=== PATIENT | male | born 1950 | race American Indian/Alaskan Native ===

== ENCOUNTER 2016-10-26 17:49 | Emergency (ER) | payer MEDICARE ==
[2016-10-26 20:14] LABS: Basophils % (Auto) 0.3 % (0.0-1.8); Eosinophils % (Auto) 2.3 % (0.0-4.3); Hematocrit 29.7 % (35.5-45.6); Hemoglobin 10.4 gm/dl (11.8-15.2); Mean Corpuscular HGB Conc 35 % (32-34); Mean Corpuscular Hemoglobin 34 pg (28-32); Mean Corpuscular Volume 97 fl (84-94); Platelet Count 189 K/mm3 (140-440); Red Blood Count 3.07 M/mm3 (3.65-5.03); Red Cell Distribution Width 13.4 % (13.2-15.2); White Blood Count 4.1 K/mm3 (4.5-11.0)
[2016-10-26 20:27] LABS: Alanine Aminotransferase 21 units/L (7-56); Albumin/Globulin Ratio 0.6 %; Alkaline Phosphatase 82 units/L (35-129); Anion Gap 17 mmol/L; BUN/Creatinine Ratio 12.85; Bilirubin,Total 0.6 mg/dL (0.1-1.2); Blood Urea Nitrogen 9 mg/dL (9-20); Calcium 9.5 mg/dL (8.4-10.2); Carbon Dioxide 28 mmol/L (22-30); Chloride 95.1 mmol/L (98-107); Glucose 98 mg/dL (75-100); Lipase 36 units/L (13-60); Sodium 136 mmol/L (137-145); Total Protein 10.2 g/dL (6.3-8.2)
[2016-10-27] MEDS ORDERED: VALIUM IM ONE ×2 (01:07→04:28)
[2016-10-27] MEDS ORDERED: DILAUDID IM ONE (01:07)
--- NOTE | 2016-10-27 01:12 | Emergency Department Report ---
HPI - General Chief Complaint: Dyspnea/Respdistress Time Seen by Provider: 10/27/16 00:33 - HPI HPI: The patient is a 66-year-old male with a history of chronic low back pain, who presents for evaluation of recurrence of back pain. The patient states that his back pain recurred one day ago, has been constant since onset, 10/10 in severity, throbbing in quality, exacerbated with movement of the back. His pain is not controlled with home oxycodone. He staters that he typically uses a walker to ambulate. The patient denies new trauma to the back, fall, fever, chills, night sweats, saddle anesthesia, paresthesias, numbness or tingling in the legs, decreased leg strength from baseline, urine or bowel incontinence or retention, difficulty ambulating, or other focal neurological deficits. The patient also denies redness or swelling to the back, IV drug use, history of cancer. The patient has a secondary complaint of 1 day of on and off dyspnea and tightness in quality and moderate in severity bilateral chest pain, exacerbated with coughing. Regarding his dyspnea and chest pain, the patient denies fever, syncope, hemoptysis, unilateral leg swelling, recent immobilization, history of DVT or PE, recent cancer. ED Past Medical Hx - Past Medical History Previous Medical History?: Yes Hx Hypertension: Yes Hx Diabetes: Yes (pt states taken off dm medication in apr by PMD) Hx Arthritis: Yes Hx Asthma: Yes Additional medical history: chronic back pain. liver problems - Surgical History Past Surgical History?: Yes Hx Cholecystectomy: Yes Additional Surgical History: back surgery. hemrrhoids. left ankle repair - Social History Smoking Status: Never Smoker Substance Use Type: None - Medications Home Medications: Home Medications Medication Instructions Recorded Confirmed Last Taken Type Cyclobenzaprine HCl [Flexeril 5 MG 5 mg PO Q8HR PRN #10 tab 10/27/16 Unknown Rx TAB] ED Review of Systems ROS: Stated complaint: SEVERE BACK PAIN Other details as noted in HPI Constitutional: denies: fever ENT: denies: throat or neck pain Respiratory: denies: cough reports shortness of breath Cardiovascular: reports chest pain Endocrine: denies unexplained weight loss or gain Gastrointestinal: denies: abdominal pain, nausea Genitourinary: denies: dysuria Musculoskeletal: reports Skin: denies: rash Neurological: denies: headache Hematological/Lymphatic: denies: easy bleeding or easy bruising Psych: denies sadness or hopelessness Physical Exam - Physical Exam Vital Signs: Vital Signs 10/26/16 10/26/16 10/27/16 18:32 22:28 00:41 Temperature 98.7 F 98.9 F Pulse Rate 82 77 86 Respiratory 18 20 Rate Blood Pressure 179/119 182/110 Blood Pressure 192/79 [Right] O2 Sat by Pulse 100 100 100 Oximetry Physical Exam: General: well-nourished, well-developed, no acute distress Head: Normocephalic, atraumatic Eyes: normal sclera ENT: Mucous membranes are pink and moist Neck: trachea midline, neck supple, No neck stiffness, no cervical adenopathy Respiratory: Breath sounds equal bilaterally, no wheezing, rales, or rhonchi Cardio: S1 and S2 present, no murmurs, rubs, gallops, capillary refill is brisk Abdomen: Normoactive bowel sounds, soft abdomen, no tenderness Musc: Inspection of the back reveals a midline lumbar postsurgical scar, well- healed, and otherwise inspection unremarkable, tenderness to palpation present to bilateral mid and lower thoracic and upper lumbar paraspinal musculature, no pain is elicited with flexion at the hip, normal active range of motion at the hip intact, no spinous step-off or obvious deformity, ipsi-lateral and contralateral straight leg raise tests are negative. On extremity testing, compartments are soft and pliable, no obvious gross motor strength deficit, 5+ motor strength, including extension of the great toe bilaterally, no muscular atrophy, spasticity, fasciculations, or clonus, no obvious gross sensation deficit including web space between 1st and 2nd toes, reflexes 2+ & symmetric on DTR testing at the knee and ankle joints, distal pulses intact. Skin: No rash Neuro: no facial drooping, normal speech Psych: Normal affect ED Course Vital Signs 10/26/16 10/26/16 10/27/16 18:32 22:28 00:41 Temperature 98.7 F 98.9 F Pulse Rate 82 77 86 Respiratory 18 20 Rate Blood Pressure 179/119 182/110 Blood Pressure 192/79 [Right] O2 Sat by Pulse 100 100 100 Oximetry ED Medical Decision Making - Lab Data Result diagrams: 10/26/16 19:53 10/26/16 19:53 - Medical Decision Making The patient was seen and examined by myself. The patient is placed on a cardiac technician and continuous pulse ox. On initial evaluation, the patient was found to be in no distress. No findings on exam concerning for cauda equina syndrome, spinal stenosis, or epidural abscess . As the patient has no midline tenderness on exam, no neuro deficits, and no findings concerning for emergent etiology of their back pain, imaging will not be obtained at this time. EKG was negative for findings suggestive of acute cardiac infarct. The patient is given an IM dose of dilaudid for his pain. Labs and imaging are obtained. Chest x-ray is negative for pneumothorax, focal consolidation, pulmonary vascular congestion, pleural effusion, or other obvious acute cardiopulmonary disease process. Lab results were non-concerning including levels of troponin, WBC, hemoglobin, hematocrit, electrolytes, renal function. The patient was reevaluated and reported that their symptoms were markedly improved. The patient is stable for discharge with outpatient follow-up. The patient is given follow-up and return instructions. The patient expressed understanding and agreed with the plan. The patient is discharged in stable condition. Critical care attestation.: If time is entered above; I have spent that time in minutes in the direct care of this critically ill patient, excluding procedure time. ED Disposition Clinical Impression: Mid-back pain, acute, Acute bilateral low back pain without sciatica, Atypical chest pain Dyspnea Qualifiers: Dyspnea type: unspecified Qualified Code(s): R06.00 - Dyspnea, unspecified Disposition: DISCHARGED TO HOME OR SELFCARE Is pt being admited?: No Does the pt Need Aspirin: No Condition: Stable Instructions: Low Back Strain (ED), Dyspnea (ED), Chest Pain (ED) Prescriptions: Cyclobenzaprine HCl [Flexeril 5 MG TAB] 5 mg PO Q8HR PRN #10 tab PRN Reason: Pain Referrals: PRIMARY CARE, [Primary Care Provider] - 3-5 Days Time of Disposition: 01:09
[2016-10-27 01:34] LABS: Bilirubin,Urine NEG (Negative); Blood,Urine NEG (Negative); Ketones,Urine NEG (Negative); Leukocyte Esterase,Urine NEG (Negative); Mucus,Urine FEW /HPF; Nitrite,Urine NEG (Negative); Urobilinogen,Urine < 2.0 mg/dL (<2.0); WBC,Urine < 1.0 /HPF (0.0-6.0)
[2016-10-27 05:20] VITALS: BP 149/96
--- NOTE | 2016-10-27 08:42 | XRay Report ---
CHEST 2 VIEWS: INDICATION: Shortness of breath. COMPARISON: None similar. FINDINGS: PA and lateral chest radiographs demonstrate slight exaggerated cardiomediastinal silhouette, though overall within normal limits. No pleural effusions or CHF. Demineralized bones and approximately 30-40% lower thoracic superior endplate compression fracture with mild kyphosis. Possible wheelchair artifact. CONCLUSION: No acute disease in the chest with few other findings, as above. Please correlate. Thank you for the opportunity to participate in this patient's care.
== END 2016-10-27 05:27 | disposition home or self-care (01) ==
LOC: ED 17:49
DX: M54.5 Low back pain (principal); R06.00 Dyspnea, unspecified; R07.89 Other chest pain; I10 Essential (primary) hypertension; E11.9 Type 2 diabetes mellitus without complications; J45.909 Unspecified asthma, uncomplicated; Z90.49 Acquired absence of other specified parts of digestive tract; Z90.89 Acquired absence of other organs; Z87.19 Personal history of other diseases of the digestive system
CPT/HCPCS: 36415; 71020; 80053; 81001; 83690; 84484; 85025; 93005; 93010; 96372; 99284; J1170; J3360